=== PATIENT | male | born 2000 | race Caucasian/White ===

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

== ENCOUNTER 2018-02-22 20:39 | Emergency (ER) | payer OTHER ==
--- NOTE | 2018-02-22 21:10 | PDOC ---
Rapid Medical Evaluation Chief Complaint: Pain Time Seen by Provider: 02/22/18 21:05 Medical Evaluation: Allergies Allergy/AdvReac Type Severity Reaction Status Date / Time No Known Allergies Allergy Verified 12/06/17 07:16 02/22/18 21:06 17 year old periumibilical pain x 2 days, + nausea, chills and diarrhea. DENIES urinary symptoms. PE: patient alert ox3 + b/l lower abdominal tenderness A: abdominal pain P: labs, urine patient to the ER for further management of care. 02/22/18 21:10 Discharge Disposition - Diagnosis Abdominal pain Qualifiers: Abdominal location: lower abdomen, unspecified Qualified Code(s): R10.30 - Lower abdominal pain, unspecified - Referrals Referrals: James Perkins [Primary Care Provider] - - Patient Instructions - Post Discharge Activity
[2018-02-22 21:11] VITALS: TEMP 98.7; BMI 20.1
[2018-02-22 22:48] LABS: BASO % 0.3 % (0-2.0); EOS % 1.2 % (0-4.5); HEMATOCRIT 44.3 % (35.4-49); HEMOGLOBIN 14.6 GM/dL (11.7-16.9); LYMPH % 24.3 % (8-40); MCHC 32.8 g/dl (32.0-35.9); MEAN CELL VOLUME 82.2 fl (80-96); MONO % 10.2 % (3.8-10.2); PLATELET COUNT 202 K/MM3 (134-434); RBC 5.39 M/mm3 (4.00-5.60); RDW 14.2 % (11.9-15.9); WHITE BLOOD COUNT 7.2 K/mm3 (4.0-10.0)
--- NOTE | 2018-02-22 22:50 | PDOC ---
History of Present Illness - General Chief Complaint: Pain Stated Complaint: STOMACH AND LOWER BACK PAIN Time Seen by Provider: 02/22/18 21:05 - History of Present Illness Initial Comments: 02/22/18 23:26 17-year-old male complaining of right lower quadrant pain and periumbilical pain for 2 days with chills and nausea. Patient reports that he had few episodes of diarrhea yesterday and today. No past medical history vaccines up-to -date. Past History - Past Medical History Allergies/Adverse Reactions: Allergies Allergy/AdvReac Type Severity Reaction Status Date / Time No Known Allergies Allergy Verified 02/22/18 21:08 Home Medications: Ambulatory Orders Ciprofloxacin HCl [Cipro] 500 mg PO BID #20 tablet 02/23/18 metroNIDAZOLE [Flagyl -] 500 mg PO BID #20 tablet 02/23/18 COPD: No Thyroid Disease: No (Denies) - Immunization History Immunization Up to Date: Yes - Suicide/Smoking/Psychosocial Hx Smoking Status: No Smoking History: Never smoked Have you smoked in the past 12 months: No Number of Cigarettes Smoked Daily: 0 Information on smoking cessation initiated: No Hx Alcohol Use: No Drug/Substance Use Hx: No Substance Use Type: None Review of Systems - Review of Systems Able to Perform ROS?: Yes Is the patient limited Nepali proficient: No Constitutional: Yes: Chills. No: Symptoms Reported, See HPI, Diaphoresis, Fever , Loss of Appetite, Malaise, Night Sweats, Weakness, Weight Stable, Unintentional Wgt. Loss, Unexplained wgt Loss, Other ABD/GI: Yes: Diarrhea, Nausea, Abdominal cramping. No: Symptoms Reported, See HPI, Abdominal Distended, Abd. Pain w/ defecation, Blood Streaked Bowels, Constipated, Difficulty Swallowing, Poor Appetite, Poor Fluid Intake, Rectal Bleeding, Vomiting, Indigestion, Tarry Stools, Other : No: Symptoms Reported, See HPI, Burning, Dysuria, Discharge, Frequency, Flank Pain, Hematuria, Incontinence, Pain, Urgency, Testicular Mass, Testicular Swelling, Lesions, Testicular Pain, Other *Physical Exam - Vital Signs Last Vital Signs Temp Pulse Resp BP Pulse Ox 98.7 F 80 18 122/79 98 02/22/18 21:02/22/18 21:02/22/18 21:02/22/18 21:02/22/18 21:09 - Physical Exam General Appearance: Yes: Appropriately Dressed Respiratory/Chest: positive: Lungs Clear, Normal Breath Sounds Gastrointestinal/Abdominal: positive: Normal Bowel Sounds, Tender (RLQ), Soft Male Genitalia: positive: normal genitalia. negative: testicular tenderness, testicular mass, hernia Extremity: positive: Normal Capillary Refill, Normal Inspection, Normal Range of Motion Integumentary: positive: Normal Color, Dry, Warm Neurologic: positive: Fully Oriented, Alert, Normal Mood/Affect ED Treatment Course - LABORATORY CBC & Chemistry Diagram: 02/22/18 22:34 02/22/18 22:34 - RADIOLOGY Radiology Studies Ordered: Category Date Time Status ABDOMEN & PELVIS CT WITH CONTR [CT] Stat CT Scan 02/22/18 22:49 Ordered Medical Decision Making - Medical Decision Making 02/23/18 02:55 Mild terminal ileitis and proximal colitis extending to the splenic flexure may be secondary to infection or Crohn's disease. *DC/Admit/Observation/Transfer Diagnosis at time of Disposition: Colitis Abdominal pain Qualifiers: Abdominal location: lower abdomen, unspecified Qualified Code(s): R10.30 - Lower abdominal pain, unspecified - Prescriptions Prescriptions: Ciprofloxacin HCl [Cipro] 500 mg PO BID #20 tablet metroNIDAZOLE [Flagyl -] 500 mg PO BID #20 tablet - Referrals Referrals: James Perkins [Primary Care Provider] - Shantel Jose MD [Staff Physician] - - Patient Instructions Printed Discharge Instructions: DI for Colitis Additional Instructions: Drink plenty of fluids Take Cipro twice daily starting tomorrow for 10 days Take Flagyl twice daily starting tomorrow for 10 days Follow-up with a assistant winemaker as soon as possible Return to the ER if you're unable to tolerate anything by mouth or worsening symptoms - Post Discharge Activity
[2018-02-22 22:57] LABS: URINE APPEARANCE CLOUDY; URINE BILIRUBIN NEGATIVE (<2.0 mg/dL); URINE COLOR YELLOW; URINE GLUCOSE (UA) NEGATIVE (NEGATIVE); URINE KETONE NEGATIVE (NEGATIVE); URINE LEUK ESTERASE NEGATIVE (NEGATIVE); URINE NITRITE NEGATIVE (NEGATIVE); URINE PROTEIN NEGATIVE (NEGATIVE); URINE UROBILINOGEN NEGATIVE mg/dL (0.2-1.0)
[2018-02-22 23:14] LABS: ALBUMIN 4.2 g/dl (3.4-5.0); ALK PHOS 87 U/L (45-117); ANION GAP 6 (8-16); BILIRUBIN,TOTAL 0.2 mg/dL (0.2-1.0); BLOOD UREA NITROGEN 10 mg/dL (7-18); CALCIUM 9.6 mg/dL (8.5-10.1); CHLORIDE 103 mmol/L (98-107); CO2 32 mmol/L (21-32); CREATININE 0.9 mg/dL (0.7-1.3); GLUCOSE,RANDOM 92 mg/dL (74-106); LIPASE 110 U/L (73-393); POTASSIUM 4.3 mmol/L (3.5-5.1); SGOT/AST 19 U/L (15-37); SGPT/ALT 33 U/L (12-78); SODIUM 141 mmol/L (136-145); TOT PROT 7.6 g/dl (6.4-8.2)
--- NOTE | 2018-02-22 23:20 | PDOC ---
*Physical Exam - Vital Signs Last Vital Signs Temp Pulse Resp BP Pulse Ox 98.7 F 80 18 122/79 98 02/22/18 21:09 02/22/18 21:09 02/22/18 21:09 02/22/18 21:09 02/22/18 21:09 ED Treatment Course - LABORATORY CBC & Chemistry Diagram: 02/22/18 22:34 02/22/18 22:34 - ADDITIONAL ORDERS Additional order review: Laboratory Results 02/22/18 02/22/18 22:39 22:34 Sodium 141 Potassium 4.3 Chloride 103 Carbon Dioxide 32 Anion Gap 6 L BUN 10 Creatinine 0.9 Creat Clearance w eGFR > 60 Random Glucose 92 Calcium 9.6 Total Bilirubin 0.2 AST 19 ALT 33 Alkaline Phosphatase 87 Total Protein 7.6 Albumin 4.2 Lipase 110 Urine Color Yellow Urine Appearance Cloudy Urine pH 7.0 Ur Specific [place] 1.025 Urine Protein Negative Urine Glucose (UA) Negative Urine Ketones Negative Urine Blood Negative Urine Nitrite Negative Urine Bilirubin Negative Urine Urobilinogen Negative Ur Leukocyte Esterase Negative 02/22/18 22:34 RBC 5.39 MCV 82.2 MCHC 32.8 RDW 14.2 MPV 9.0 Neutrophils % 64.0 Lymphocytes % 24.3 D Monocytes % 10.2 Eosinophils % 1.2 D Basophils % 0.3 Medical Decision Making - Medical Decision Making 02/22/18 23:20 agree with care from CARLINE Leach *DC/Admit/Observation/Transfer Diagnosis at time of Disposition: Abdominal pain Qualifiers: Abdominal location: lower abdomen, unspecified Qualified Code(s): R10.30 - Lower abdominal pain, unspecified - Referrals Referrals: James Perkisn [Primary Care Provider] - - Patient Instructions - Post Discharge Activity
[2018-02-23] MEDS ORDERED: SODIUM CHLORIDE 1,000 ML IV STA (00:26)
[2018-02-23] MEDS ORDERED: metroNIDAZOLE 500 MG TABLET PO ONE (02:57)
[2018-02-23] MEDS ORDERED: metroNIDAZOLE 250 MG TABLET ONE (03:03)
[2018-02-23 03:25] VITALS: BP 122/69; PULSE 78
== END 2018-02-23 03:25 | disposition home or self-care (01) ==
LOC: JER 20:39
PROC: 3E0337Z Introduction of Electrolytic and Water Balance Substance into Peripheral Vein, Percutaneous Approach (ICD-10-PCS; principal; 2018-02-22)
DX: K52.9 Noninfective gastroenteritis and colitis, unspecified (principal); R10.30 Lower abdominal pain, unspecified
CPT/HCPCS: 36415; 74177-TC; 80053; 81003; 83690; 85025; 86850; 86900; 86901; 99284-25; J7030

== ENCOUNTER 2019-07-11 19:30 | Emergency (ER) | payer OTHER ==
[2019-07-11 19:39] VITALS: BP 124/77; PULSE 103; TEMP 101; BMI 20.3
[2019-07-11] MEDS ORDERED: IBUPROFEN 600 MG TABLET (FP) PO ONE (19:54)
--- NOTE | 2019-07-11 20:38 | PDOC ---
History of Present Illness - General Chief Complaint: Cold Symptoms Stated Complaint: COLD SYMPTOMS Time Seen by Provider: 07/11/19 19:41 - History of Present Illness Initial Comments: 07/11/19 20:36 18-year-old male without comorbidities presents for flulike symptoms x1 day Past History - Past Medical History Allergies/Adverse Reactions: Allergies Allergy/AdvReac Type Severity Reaction Status Date / Time No Known Allergies Allergy Verified 02/22/18 21:08 Home Medications: Ambulatory Orders Acetaminophen [Tylenol] 650 mg PO PRN 02/23/18 Ciprofloxacin HCl [Cipro] 500 mg PO BID #20 tablet 02/23/18 metroNIDAZOLE [Flagyl -] 500 mg PO BID #20 tablet 02/23/18 Oseltamivir Phosphate [Tamiflu] 75 mg PO BID #10 capsule 07/11/19 COPD: No Thyroid Disease: No (Denies) - Immunization History Immunization Up to Date: Yes - Psycho Social/Smoking Cessation Hx Smoking Status: No Smoking History: Never smoked Have you smoked in the past 12 months: No Number of Cigarettes Smoked Daily: 0 Hx Alcohol Use: No Drug/Substance Use Hx: No Substance Use Type: None Review of Systems - Review of Systems Constitutional: Yes: Fever HEENTM: Yes: Nose Congestion Respiratory: Yes: Cough *Physical Exam - Vital Signs Last Vital Signs Temp Pulse Resp BP Pulse Ox 101 F H 103 H 20 124/77 99 07/11/19 19:37 07/11/19 19:37 07/11/19 19:37 07/11/19 19:37 07/11/19 19:37 - Physical Exam 07/11/19 20:36 GENERAL: The patient is awake, alert, and fully oriented, in no acute distress. HEAD: Normal with no signs of trauma. EYES: sclera anicteric, conjunctiva clear. ENT: Ears normal tympanic membranes normal oropharynx clear uvula midline NECK: Normal range of motion LUNGS: Breath sounds equal, clear to auscultation bilaterally. No wheezes, and no crackles. HEART: S1 and S2 without murmur, rub or gallop. ABDOMEN: Soft, nontender, normoactive bowel sounds. No guarding, no rebound. No masses. EXTREMITIES: Normal range of motion, no edema. No clubbing or cyanosis. No cords, erythema, or tenderness. NEUROLOGICAL: Cranial nerves II through XII grossly intact. Normal speech, normal gait. PSYCH: Normal mood, normal affect. SKIN: Warm, Dry, normal turgor, no rashes or lesions noted. ED Treatment Course - Medications Given in the ED: ED Medications Discontinued Medications Generic Name Dose Route Start Last Admin Trade Name Roger PRN Reason Stop Dose Admin Ibuprofen 600 mg 07/11/19 19:54 07/11/19 20:06 Motrin - PO 07/11/19 19:55 600 mg ONCE ONE Administration Medical Decision Making - Medical Decision Making 07/11/19 20:36 Tamiflu for influenza follow-up with PCP supportive care with Tylenol Motrin and fluids Discharge - Discharge Information Problems reviewed: Yes Clinical Impression/Diagnosis: Influenza Condition: Stable Disposition: HOME - Admission No - Additional Discharge Information Prescriptions: Oseltamivir Phosphate [Tamiflu] 75 mg PO BID #10 capsule - Follow up/Referral Referrals: Eder Jonas MD [Staff Physician] - - Patient Discharge Instructions Patient Printed Discharge Instructions: Influenza Additional Instructions: Please take the Tamiflu as directed. Tylenol Motrin as directed for fevers. Return to the emergency room for worsening symptoms. Without fail please follow -up with your primary care physician in 2 to 3 days for further evaluation and treatment options. - Post Discharge Activity
== END 2019-07-11 20:52 | disposition home or self-care (01) ==
LOC: JERFT 19:30
DX: J09.X2 Influenza due to identified novel influenza A virus with other respiratory manifestations (principal)
CPT/HCPCS: 87804; 99281-25

== ENCOUNTER 2020-02-24 03:29 | Emergency (ER) | payer OTHER ==
[2020-02-24] MEDS ORDERED: SODIUM CHLORIDE 0.9% 500 ML INFUS.BAG IV ONE ×3 (03:47→06:11)
[2020-02-24] MEDS ORDERED: KETOROLAC TROMETHAMINE 15 MG/ML VIAL IVPUSH ONE (03:47)
[2020-02-24] MEDS ORDERED: KETOROLAC TROMETHAMINE 15 MG/ML VIAL ONE ×2 (03:53→05:05)
--- NOTE | 2020-02-24 04:05 | PDOC ---
History of Present Illness - General Stated Complaint: BACK PAIN Past History - Medical History Allergies/Adverse Reactions: Allergies Allergy/AdvReac Type Severity Reaction Status Date / Time No Known Allergies Allergy Verified 02/22/18 21:08 Home Medications: Ambulatory Orders Acetaminophen [Tylenol] 650 mg PO PRN 02/23/18 Ciprofloxacin HCl [Cipro] 500 mg PO BID #20 tablet 02/23/18 metroNIDAZOLE [Flagyl -] 500 mg PO BID #20 tablet 02/23/18 Oseltamivir Phosphate [Tamiflu] 75 mg PO BID #10 capsule 07/11/19 COPD: No Thyroid Disease: No (Denies) - Immunization History Immunization Up to Date: Yes - Psycho-Social/Smoking History Smoking Status: No Smoking History: Never smoked Have you smoked in the past 12 months: No Number of Cigarettes Smoked Daily: 0 ED Treatment Course - LABORATORY CBC & Chemistry Diagram: 02/24/20 03:56 02/24/20 03:56 Medical Decision Making - Medical Decision Making 02/24/20 04:04 HPI: 19yo M no PMH presents from home c/o sudden onset woke from sleep at 0230 constant worsening L flank pain now moving to LLQ no pain meds tried. Endorses nausea. Denies F/C, vomiting, CP, SOB, URI-like sx, COVID, sick contacts, diarrhea, constipation, dysuria, urgency/frequency, hematuria, testicular pain or swelling. USOH before sleep. No trauma or heavy lifting. Endorses FHx kidney stones. ROS: Constitutional: Negative for chills, fever, fatigue, diaphoresis. HENT: Negative for sore throat, rhinorrhea, congestion. Eyes: Negative for visual disturbance. Respiratory: Negative for shortness of breath, cough, and wheezing. Cardiovascular: Negative for chest pain, palpitations, and leg swelling. Gastrointestinal: Positive for LLQ pain and nausea. Negative for blood in stool, constipation, diarrhea, and vomiting. Genitourinary: Positive for flank pain. Negative for dysuria, and hematuria. Musculoskeletal: Negative for myalgias, back pain, and neck pain. Skin: Negative for rash. Neurological: Negative for light-headedness, dizziness, vertigo, syncope, weakness, numbness and headaches. Psychiatric/Behavioral: Negative for behavioral problems and confusion. PE: Gen: Alert, NAD, uncomfortable-appearing, pacing holding L flank HEENT: PERRL, EOMI, MMM, NCAT. No conjunctival pallor. Sclera are non-icteric. CV: Regular rate and rhythm. No murmurs, rubs, or gallops. PULM: No resp distress. CTAB, no wheezes, rales, or rhonchi. ABD: soft, NT/ND, no rebound tenderness or guarding, no CVA tenderness. BACK: No TTP of c/t/l-spine. No step-offs or deformities. MSK: No bony deformities. 2+ pulses in all extremities. NEURO: AAOx3. PERRL. No gross CN deficits. Strength and sensation grossly intact throughout. Normal gait. EXTREMITIES: No cyanosis. No clubbing. No edema. PSYCH: Normal mood and thought pattern. SKIN: Warm and dry. Normal capillary refill. No rashes. No jaundice. MDM: 19yo M no PMH presents from home c/o sudden onset woke from sleep at 0230 constant worsening L flank pain now moving to LLQ no pain meds tried, associated nausea. Hemodynamically stable, afebrile, benign abdomen. Ddx: presentation c/w kidney stone. Also consider infected stone or UTI. Low concern for emergent GI or testicular pathology at this time due to benign abd omen, lack of D/C/F/C/vomiting/testicular sx, and presentation c/w kidney stone - obtain basic labs and spiral CT and re-eval if equivocal diagnosis. -Toradol -CBC,CMP,UA/UC -Spiral CT -IVF -Dispo: pending w/u and reassessment, likely d/c home 02/24/20 04:50 Labs reviewed. No UTI or concerning findings. CT reviewed: Left kidney 3 mm lower pole nonobstructing nephrolithiasis. Mild left hydronephrosis with a 2 x 2 x 2 mm stone in the left posterior bladder near the left ureterovesicular junction. Pain returning, nauseated, NBNB emesis x1 -Ofirmev -Zofran 4 -Flomax -2nd L NS 02/24/20 05:54 2nd episode emesis. Pain continued. EKG: NSR with sinus arrhythmia, 62bpm, normal axis, normal intervals, QTc 424ms -Zofran 4 -Morphine 4 02/24/20 06:16 Pt endorses resolution of nausea and pain. Pt loopy from morphine. Pt states he was able to urinate a little. Possible passage of stone. 02/24/20 06:45 Pain and nausea still gone, pt very comfortably, loopy. []observation until sober (with continued resolution of nausea and pain) and PO challenge Discharge - Discharge Information Problems reviewed: Yes Clinical Impression/Diagnosis: Kidney stone Condition: Improved - Follow up/Referral Referrals: James Perkins [Primary Care Provider] - - Patient Discharge Instructions Patient Printed Discharge Instructions: DI for Kidney Stones Additional Instructions: You have been seen in the Emergency Department for your kidney stone. Your pain and vomiting improved with fluids and pain and nausea medications. The stone should be able to pass on its own, and it may have passed already. At this time it's most important to stay hydrated. If you experience pain, you can take Tylenol or Ibuprofen as directed on the medication bottle, but do not exceed 3g of Ibuprofen or 4g of Tylenol a day. Follow-up with your primary care doctor within 1 week. Return to the Emergency Department immediately if you experience pain not controlled by tylenol or ibuprofen, fever, vomiting, or any other new or worsening symptom. - Post Discharge Activity
[2020-02-24 04:11] LABS: BASO % 0.5 % (0-2.0); HEMATOCRIT 44.7 % (35.4-49); HEMOGLOBIN 14.6 GM/dL (11.7-16.9); LYMPH % 50.3 % (8-40); MCH 27.4 pg (25.7-33.7); MCHC 32.6 g/dl (32.0-35.9); MEAN CELL VOLUME 84.1 fl (80-96); MEAN PLT VOLUME 10.4 fl (7.5-11.1); MONO % 5.9 % (3.8-10.2); NEUT % 41.3 % (42.8-82.8); PLATELET COUNT 266 K/MM3 (134-434); RBC 5.31 M/mm3 (4.00-5.60); RDW 13.8 % (11.9-15.9); WHITE BLOOD COUNT 8.3 K/mm3 (4.0-10.0)
[2020-02-24 04:14] LABS: EPI CELLS 21 /uL (0-25.1); HYALINE CASTS 5 /uL (0-3.1); PH,URINE 6.5 (5.0-8.0); URINE APPEARANCE TURBID; URINE BACTERIA 65 /uL (0-1359); URINE BILIRUBIN NEGATIVE (NEGATIVE); URINE COLOR ORANGE; URINE GLUCOSE (UA) NEGATIVE (NEGATIVE); URINE KETONE NEGATIVE (NEGATIVE); URINE LEUK ESTERASE TRACE (NEGATIVE); URINE NITRITE NEGATIVE (NEGATIVE); URINE PROTEIN 1+ (NEGATIVE); URINE RBC 8429 /uL (0-23.9); URINE WBC 14 /uL (0-25.8)
[2020-02-24 04:16] VITALS: BMI 23.5
--- NOTE | 2020-02-24 04:18 | PDOC ---
Attending Attestation - Resident Resident Name: Eula Cullen - ED Attending Attestation I have performed the following: I have examined & evaluated the patient, The case was reviewed & discussed with the resident, I agree w/resident's findings & plan - HPI HPI: 02/24/20 04:17 Pt comes with hematuria and flank pain that he felt at 1AM when he woke from sleep with the pain. He has never had pain in the past like this. His dad has a hx of kidney stones. Pt has no PMHX, - Physicial Exam PE: 02/24/20 06:07 afebrile VSS heart RRR Lungs CTA B abd pain no C/C/E - Medical Decision Making 02/24/20 04:35 Pt's CBC and chem are normal; pt has slightly elevated blood sugar of 134. 02/24/20 04:53 Patient Name: COLBY MARTINEZ THIS IS A PRELIMINARY REPORT DATE OF SERVICE: 2020-02-24 04:12:06 IMAGES: 410 EXAM: CT ABDOMEN WITHOUT CONTRAST AND CT PELVIS WITHOUT CONTRAST HISTORY: 19-Year-Old Female Left Flank Pain. COMPARISON: None. FINDINGS: Left kidney 3 mm lower pole nonobstructing nephrolithiasis. Mild left hydronephrosis with a 2 x 2 x 2 mm stone in the left posterior bladder near the left ureterovesicular junction. Lack of intravenous contrast limits this exam. The lung bases are clear. Noncontrast evaluation of the liver gallbladder pancreas spleen and adrenal glands appear unremarkable. Lack of oral contrast limits this exam. Noncontrast evaluation stomach small bowel and appendix appear unremarkable. No appendicitis. Diverticulosis. No diverticulitis. Mild nonspecific wall thickening of the rectum most likely due to mild infectious or inflammatory proctitis. Mild degenerative disc disease in the lower lumbar spine. No free air. No free fluid. No abscess. IMPRESSION: Mild left hydronephrosis with a 2 mm stone in the left posterior bladder near t he left ureterovesicular junction. 02/24/20 06:10 Pt has no pain at this time. 02/24/20 21:59 Sign out to the day team. They will d/c patient after he is fully hydrated with 2L saline Discharge - Discharge Information Problems reviewed: Yes Clinical Impression/Diagnosis: Kidney stone Condition: Improved Disposition: HOME - Follow up/Referral Referrals: Monico Oliveira MD [Staff Physician] - James Perkins [Primary Care Provider] - - Patient Discharge Instructions Patient Printed Discharge Instructions: DI for Kidney Stones Additional Instructions: You have been seen in the Emergency Department for your kidney stone. Your pain and vomiting improved with fluids and pain and nausea medications. The stone should be able to pass on its own, and it may have passed already. At this time it's most important to stay hydrated. If you experience pain, you can take Tylenol or Ibuprofen as directed on the medication bottle, but do not exceed 3g of Ibuprofen or 4g of Tylenol a day. Follow-up with your primary care doctor within 1 week. A referral for a urologist has been given if you need to see another doctor for your pain. Return to the Emergency Department immediately if you experience pain not controlled by tylenol or ibuprofen, fever, vomiting, or any other new or worsening symptom. - Post Discharge Activity Work/Back to School Note: Back to Work
[2020-02-24 04:28] LABS: ALBUMIN 4.3 g/dl (3.4-5.0); BILIRUBIN,TOTAL 0.3 mg/dL (0.2-1); BLOOD UREA NITROGEN 16.4 mg/dL (7-18); POTASSIUM 3.5 mmol/L (3.5-5.1); TOT PROT 7.3 g/dl (6.4-8.2)
[2020-02-24] MEDS ORDERED: ACETAMINOPHEN 1000 MG/100 ML VIAL (NON FORMULARY) IVPB ONE (04:50)
[2020-02-24] MEDS ORDERED: ONDANSETRON 4 MG/2 ML VIAL IVPUSH ONE ×2 (04:51→05:42)
[2020-02-24] MEDS ORDERED: TAMSULOSIN HCL 0.4 MG CAP PO ONE (04:53)
[2020-02-24] MEDS ORDERED: ACETAMINOPHEN INJECTION 100 ML IVPB ONE (05:05)
[2020-02-24] MEDS ORDERED: TAMSULOSIN HCL 0.4 MG CAP ONE (05:05)
[2020-02-24] MEDS ORDERED: PHENAZOPYRIDINE HCL 100 MG TABLET (FP) PO ONE (05:07)
[2020-02-24] MEDS ORDERED: PHENAZOPYRIDINE HCL 100 MG TABLET (FP) ONE (05:14)
[2020-02-24] MEDS ORDERED: morphine CARPU-JECT 4 MG/1 ML DISP.SYRIN IVPUSH ONE (05:40)
[2020-02-24] MEDS ORDERED: morphine SULFATE 4 MG/ML VIAL ONE (05:52)
[2020-02-24 06:32] VITALS: TEMP 97.6
[2020-02-24 06:55] VITALS: BP 110/63; PULSE 70
--- NOTE | 2020-02-24 07:18 | PDOC ---
*Physical Exam - Vital Signs Last Vital Signs Temp Pulse Resp BP Pulse Ox 97.6 F 70 18 110/63 99 02/24/20 06:31 02/24/20 06:54 02/24/20 06:54 02/24/20 06:54 02/24/20 06:54 ED Treatment Course - LABORATORY CBC & Chemistry Diagram: 02/24/20 03:56 02/24/20 03:56 - ADDITIONAL ORDERS Additional order review: Laboratory Results 02/24/20 02/24/20 03:56 03:56 Sodium 143 Potassium 3.5 Chloride 107 Carbon Dioxide 25 Anion Gap 10 BUN 16.4 Creatinine 1.0 Est GFR (CKD-EPI)AfAm 124.14 Est GFR (CKD-EPI)NonAf 107.11 Random Glucose 134 H Calcium 9.0 Total Bilirubin 0.3 AST 18 ALT 27 Alkaline Phosphatase 78 Total Protein 7.3 Albumin 4.3 Urine Color [place] Urine Appearance Turbid Urine pH 6.5 Ur Specific [place] 1.033 Urine Protein 1+ H Urine Glucose (UA) Negative Urine Ketones Negative Urine Blood 3+ H Urine Nitrite Negative Urine Bilirubin Negative Urine Urobilinogen 1.0 Ur Leukocyte Esterase Trace Urine WBC (Auto) 14 Urine RBC (Auto) 8429 Urine Casts (Auto) 5 U Epithel Cells (Auto) 21 Urine Bacteria (Auto) 65 02/24/20 03:56 RBC 5.31 MCV 84.1 MCHC 32.6 RDW 13.8 MPV 10.4 D Neutrophils % 41.3 L D Lymphocytes % 50.3 H D Monocytes % 5.9 Eosinophils % 2.0 Basophils % 0.5 - Medications Given in the ED: ED Medications Discontinued Medications Generic Name Dose Route Start Last Admin Trade Name Alphonsoq PRN Reason Stop Dose Admin Acetaminophen 1,000 mg 02/24/20 04:50 02/24/20 05:07 Ofirmev Injection - IVPB 02/24/20 04:51 1,000 mg ONCE ONE Administration Ketorolac Tromethamine 15 mg 02/24/20 03:47 02/24/20 04:16 Toradol Injection - IVPUSH 02/24/20 03:48 15 mg ONCE ONE Administration Morphine Sulfate 4 mg 02/24/20 05:40 02/24/20 05:54 Morphine Injection - IVPUSH 02/24/20 05:41 4 mg ONCE ONE Administration Ondansetron HCl 4 mg 02/24/20 04:51 02/24/20 05:07 Zofran Injection IVPUSH 02/24/20 04:52 4 mg NOW ONE Administration Ondansetron HCl 4 mg 02/24/20 05:42 02/24/20 05:47 Zofran Injection IVPUSH 02/24/20 05:43 4 mg ONCE ONE Administration Phenazopyridine HCl 100 mg 02/24/20 05:07 02/24/20 05:15 Pyridium - PO 02/24/20 05:08 100 mg ONCE ONE Administration Sodium Chloride 1,000 ml 02/24/20 03:47 02/24/20 04:15 Normal Saline - IV 02/24/20 03:48 1,000 ml ONCE ONE Administration Sodium Chloride 1,000 ml 02/24/20 04:50 02/24/20 05:07 Normal Saline - IV 02/24/20 04:51 1,000 ml ONCE ONE Administration Sodium Chloride 1,000 ml 02/24/20 06:11 02/24/20 06:48 Normal Saline - IV 02/24/20 06:12 1,000 ml ONCE ONE Administration Tamsulosin HCl 0.4 mg 02/24/20 04:53 02/24/20 05:07 Flomax - PO 02/24/20 04:54 0.4 mg ONCE ONE Administration Medical Decision Making - Medical Decision Making 02/24/20 07:13 Got sign out from Dr. Cullen. Here for pain related to ureteral stone. Has a few, biggest is 4mm. Patient given morphine for worsening pain about an hour ago. Also nauseated, given some Zofran x2. Pain has since resolved, tolerating PO without issue, no more nausea/vomiting. Stable for discharge home with urology f/u. Discharge - Discharge Information Problems reviewed: Yes Clinical Impression/Diagnosis: Kidney stone Condition: Improved Disposition: HOME - Follow up/Referral Referrals: James Perkins [Primary Care Provider] - Monico Oliveira MD [Staff Physician] - - Patient Discharge Instructions Patient Printed Discharge Instructions: DI for Kidney Stones Additional Instructions: You have been seen in the Emergency Department for your kidney stone. Your pain and vomiting improved with fluids and pain and nausea medications. The stone should be able to pass on its own, and it may have passed already. At this time it's most important to stay hydrated. If you experience pain, you can take Tylenol or Ibuprofen as directed on the med ication bottle, but do not exceed 3g of Ibuprofen or 4g of Tylenol a day. Follow-up with your primary care doctor within 1 week. A referral for a urologist has been given if you need to see another doctor for your pain. Return to the Emergency Department immediately if you experience pain not contr olled by tylenol or ibuprofen, fever, vomiting, or any other new or worsening symptom. - Post Discharge Activity Work/Back to School Note: Back to Work
--- NOTE | 2020-02-24 08:51 | EKG ---
Test Reason : Blood Pressure : / mmHG Vent. Rate : 062 BPM Atrial Rate : 062 BPM P-R Int : 146 ms QRS Dur : 088 ms QT Int : 418 ms P-R-T Axes : 041 088 054 degrees QTc Int : 424 ms NORMAL SINUS RHYTHM WITH SINUS ARRHYTHMIA NORMAL ECG NO PREVIOUS ECGS AVAILABLE Confirmed by Deidre Mcintyre ([id number]) on 02/24/2020 8:51:12 AM Referred By: Confirmed By:Deidre Mcintyre
== END 2020-02-24 07:40 | disposition home or self-care (01) ==
LOC: JER 03:29
PROC: 3E033GC Introduction of Other Therapeutic Substance into Peripheral Vein, Percutaneous Approach (ICD-10-PCS; principal; 2020-02-24)
DX: N20.0 Calculus of kidney (principal)
CPT/HCPCS: 36415; 74176-TC; 80053; 81003; 85025; 87086; 93005; 93010; 99285-25; J0131

== ENCOUNTER 2020-02-26 00:16 | Emergency (ER) | payer OTHER ==
[2020-02-26 00:50] VITALS: BMI 22.0
--- NOTE | 2020-02-26 01:39 | PDOC ---
*Physical Exam - Vital Signs Last Vital Signs Temp Pulse Resp BP Pulse Ox 98.3 F 73 18 129/64 100 02/26/20 00:41 02/26/20 00:41 02/26/20 00:41 02/26/20 00:41 02/26/20 00:41 Medical Decision Making - Medical Decision Making 02/26/20 01:39 Patient seen by the advanced practice provider under my supervision. Ancillary testing reviewed as necessary. I agree with plan as outlined by the advanced practice provider. Discharge - Discharge Information Problems reviewed: Yes Clinical Impression/Diagnosis: Renal colic on left side Condition: Fair Disposition: HOME - Additional Discharge Information Prescriptions: Ibuprofen 600 mg PO QID PRN #20 tablet PRN Reason: Back Pain - Follow up/Referral Referrals: Monico Oliveira MD [Staff Physician] - Call tomorrow - Patient Discharge Instructions Patient Printed Discharge Instructions: Kidney Stones -- Adult Additional Instructions: Drink plenty of fluids. You may take ibuprofen every 6 hours as needed for pain. It is important that you follow-up with a urologist. Return to the emergency room if you develop fever, nausea, vomiting, worsening symptoms. - Post Discharge Activity
--- NOTE | 2020-02-26 01:54 | PDOC ---
History of Present Illness - General Chief Complaint: Back Pain Stated Complaint: PAIN Time Seen by Provider: 02/26/20 01:37 History Source: Patient - History of Present Illness Initial Comments: 02/26/20 02:23 19-year-old male with left obstructed kidney stone complaining of left flank discomfort and generalized abdominal pain. Patient was seen in this ER yesterday and was diagnosed with a kidney stone at [facility]. Patient is unsure if he passed a kidney stone. Denies blood in urine or frequency of urination. Patient took 1 dose of Tylenol at 12 PM. Patient reports that the pain is much more tolerable today however concerned since still has pain. Denies fever/chills No past medical history 02/26/20 04:52 Past History - Medical History Allergies/Adverse Reactions: Allergies Allergy/AdvReac Type Severity Reaction Status Date / Time No Known Allergies Allergy Verified 02/26/20 00:47 Home Medications: Ambulatory Orders Acetaminophen [Tylenol] 650 mg PO PRN 02/23/18 Ciprofloxacin HCl [Cipro] 500 mg PO BID #20 tablet 02/23/18 metroNIDAZOLE [Flagyl -] 500 mg PO BID #20 tablet 02/23/18 Oseltamivir Phosphate [Tamiflu] 75 mg PO BID #10 capsule 07/11/19 Ibuprofen 600 mg PO QID PRN #20 tablet 02/26/20 COPD: No Thyroid Disease: No (Denies) - Immunization History Immunization Up to Date: Yes - Psycho-Social/Smoking History Smoking Status: No Smoking History: Never smoked Have you smoked in the past 12 months: No Number of Cigarettes Smoked Daily: 0 Information on smoking cessation initiated: No - Substance Abuse Hx (Audit-C & DAST Scrn) How often the patient has a drink containing alcohol: Never Score: In Men: 4 or > Positive; In Women: 3 or > Positive: 0 Screen Result (Pos requires Nsg. Audit-10AR): Negative In the last yr the pt used illegal drug/Rx for NonMed reason: No Score: Yes response is considered Positive: 0 Screen Result (Positive result requires Nsg. DAST-10): Negative Review of Systems - Review of Systems Able to Perform ROS?: Yes Is the patient limited Nigerien proficient: No ABD/GI: Yes: Abdominal cramping. No: Symptoms Reported, See HPI, Abdominal Distended, Abd. Pain w/ defecation, Blood Streaked Bowels, Constipated, Diarrhea, Difficulty Swallowing, Nausea, Poor Appetite, Poor Fluid Intake, Rectal Bleeding, Vomiting, Indigestion, Tarry Stools, Other : No: Symptoms Reported, See HPI, Burning, Dysuria, Discharge, Frequency, Flank Pain, Hematuria, Incontinence, Pain, Urgency, Testicular Mass, Testicular Swelling, Lesions, Testicular Pain, Other *Physical Exam - Vital Signs Last Vital Signs Temp Pulse Resp BP Pulse Ox 98.3 F 73 18 129/64 100 02/26/20 00:41 02/26/20 00:41 02/26/20 00:41 02/26/20 00:41 02/26/20 00:41 - Physical Exam General Appearance: Yes: Appropriately Dressed Respiratory/Chest: positive: Lungs Clear, Normal Breath Sounds Gastrointestinal/Abdominal: positive: Normal Bowel Sounds, Soft. negative: Tender Musculoskeletal: negative: CVA Tenderness Extremity: positive: Normal Capillary Refill, Normal Inspection, Normal Range of Motion Integumentary: positive: Dry Neurologic: positive: Fully Oriented, Alert, Normal Mood/Affect ED Progress Note - Progress Note Progress Note: 02/26/20 04:49 A: renal colic P: ua urine culture nsaids Discharge - Discharge Information Problems reviewed: Yes Clinical Impression/Diagnosis: Renal colic on left side Condition: Fair Disposition: HOME - Additional Discharge Information Prescriptions: Ibuprofen 600 mg PO QID PRN #20 tablet PRN Reason: Back Pain - Follow up/Referral Referrals: Monico Oliveira MD [Staff Physician] - Call tomorrow - Patient Discharge Instructions Patient Printed Discharge Instructions: Kidney Stones -- Adult Additional Instructions: Drink plenty of fluids. You may take ibuprofen every 6 hours as needed for pain. It is important that you follow-up with a urologist. Return to the emergency room if you develop fever, nausea, vomiting, worsening symptoms. - Post Discharge Activity
[2020-02-26] MEDS ORDERED: IBUPROFEN 600 MG TABLET (FP) PO ONE ×2 (01:58→02:03)
[2020-02-26 02:35] LABS: EPI CELLS 7 /uL (0-25.1); HYALINE CASTS 1 /uL (0-3.1); URINE APPEARANCE CLEAR; URINE BACTERIA 25 /uL (0-1359); URINE BILIRUBIN NEGATIVE (NEGATIVE); URINE COLOR YELLOW; URINE GLUCOSE (UA) NEGATIVE (NEGATIVE); URINE KETONE NEGATIVE (NEGATIVE); URINE LEUK ESTERASE NEGATIVE (NEGATIVE); URINE NITRITE NEGATIVE (NEGATIVE); URINE PROTEIN NEGATIVE (NEGATIVE); URINE RBC 16 /uL (0-23.9); URINE WBC 14 /uL (0-25.8)
[2020-02-26 03:24] VITALS: BP 114/66; PULSE 65; TEMP 98
== END 2020-02-26 03:16 | disposition home or self-care (01) ==
LOC: JER 00:16
DX: N23 Unspecified renal colic (principal)
CPT/HCPCS: 81003; 87077; 87086; 99283-25